=== PATIENT | female | born 2000 | race Caucasian/White ===

== ENCOUNTER 2018-09-22 10:20 | Emergency (ER) | payer OTHER ==
[2018-09-22] MEDS: LIDOCAINE 2% (MDV) 20 ML INJ INJ (11:56)
== END 2018-09-22 13:34 | disposition home or self-care (01) ==
LOC: FTE 10:20
DX: L05.01 Pilonidal cyst with abscess (principal)
CPT/HCPCS: 10080; 81025; 99283-25

== ENCOUNTER 2018-09-24 15:05 | Emergency (ER) | payer OTHER ==
[2018-09-24] MEDS: HYDROCODONE/APAP (5/325) TAB PO ×2 (17:34→17:38)
== END 2018-09-24 17:41 | disposition home or self-care (01) ==
LOC: FTE 15:05
DX: Z48.01 Encounter for change or removal of surgical wound dressing (principal)
CPT/HCPCS: 99283; Z7502

== ENCOUNTER 2018-09-26 18:12 | Emergency (ER) | payer OTHER ==
[2018-09-26] MEDS: HYDROmorphONE 0.5 MG/0.5 ML SYG IM (19:36)
[2018-09-26] MEDS: ONDANSETRON (ODT) 4 MG TAB ODT (19:36)
[2018-09-26] MEDS: LIDOCAINE 1%/EPI (1:100,000) (MDV) 20 ML INJ (20:15)
[2018-09-26] MEDS: LIDOCAINE 1%/EPI (MDV) 50 ML INJ INJ (20:15)
== END 2018-09-26 20:25 | disposition home or self-care (01) ==
LOC: FTE 18:12
DX: L05.01 Pilonidal cyst with abscess (principal)
CPT/HCPCS: 10080; 96372; 99284-25

== ENCOUNTER 2018-09-28 10:28 | Emergency (ER) | payer OTHER | END 2018-09-28 13:22 | disposition home or self-care (01) | LOC: FTE 13:22 | DX: Z48.01 Encounter for change or removal of surgical wound dressing (principal) | CPT/HCPCS: 99283; Z7502 ==